=== PATIENT | female | born 1965 | race Caucasian/White ===

== ENCOUNTER 2020-11-25 10:02 | Inpatient (IN) | payer BC ==
[2020-11-25] MEDS ORDERED: CHERRY SYRUP 10 ML UDC PO ONE (11:06)
[2020-11-25] MEDS ORDERED: DEXAMETHASONE 10 MG/ML VIAL PO STA (11:06)
--- NOTE | 2020-11-25 11:09 | XRAY Report ---
PROCEDURE: Chest 1 View X-Ray INDICATIONS: dyspnea TECHNIQUE: One view of the chest was acquired. COMPARISON: None. FINDINGS: Surgical changes and devices: None. Lungs and pleura: No pleural effusions or pneumothorax. Ill-defined airspace opacities are seen sebastian g lateral periphery of bilateral lung keys. Mild pulmonary vascular congestion is also seen. Mediastinum: Mediastinal contours appear normal. Heart size is mildly enlarged. Bones and chest wall: No suspicious bony lesions. Overlying soft tissues appear unremarkable. IMPRESSION: Ill-defined airspace opacity along lateral periphery of bilateral lung keys concerning for bilatera l pulmonary infiltrates possibly from atypical pneumonia. No pleural effusion or pneumothorax. Reviewed by: Abdulkadir Sparks MD on 11/25/2020 11:08 AM PDT Approved by: Abdulkadir Sparks MD on 11/25/2020 11:08 AM PDT Station ID: [id number]
--- NOTE | 2020-11-25 11:09 | ED Physician Documentation ---
PD HPI DYSPNEA - Stated complaint Stated Complaint: C+ SOA - Chief complaint Chief Complaint: Resp - History obtained from History obtained from: Patient - Additional information Additional information: 55-year-old woman was diagnosed with Covid about 2 weeks ago. The myalgias and fevers are gone but she has persistent shortness of breath and pain with deep breathing as well as right leg pain. No history of DVT or PE, but her daughter has had one in the past. Review of Systems Ten Systems: 10 systems reviewed and negative Constitutional: denies: Fever, Chills Ears: reports: Reviewed and negative Nose: reports: Reviewed and negative Throat: reports: Reviewed and negative Cardiac: reports: Reviewed and negative Respiratory: reports: Reviewed and negative PD PAST MEDICAL HISTORY - Allergies Allergies/Adverse Reactions: Allergies Allergy/AdvReac Type Severity Reaction Status Date / Time Iodine and Iodide Containing Allergy Anaphylaxis Verified 11/25/20 12:13 Produc shellfish derived Allergy Anaphylaxis Verified 11/25/20 12:14 Sulfa (Sulfonamide Allergy Anaphylaxis Verified 11/25/20 10:17 Antibiotics) PD ED PE NORMAL - Vitals Vital signs reviewed: Yes - General General: Alert and oriented X 3, No acute distress - HEENT HEENT: PERRL, EOMI - Neck Neck: Supple, no meningeal sign, No bony TTP - Cardiac Cardiac: Other (Mild tachycardia, regular rate and rhythm without murmur) - Respiratory Respiratory: No respiratory distress, Clear bilaterally - Abdomen Abdomen: Normal bowel sounds, Soft, Non tender - Back Back: No CVA TTP, No spinal TTP - Derm Derm: Normal color, Warm and dry - Extremities Extremities: Other (Some right calf tenderness, no obvious asymmetry) - Neuro Neuro: Alert and oriented X 3, Normal speech Results - Vitals Vitals: Vital Signs - 24 hr 11/25/20 11/25/20 10:13 14:54 Temperature 36.5 C Heart Rate 103 H 91 Respiratory 20 32 H Rate Blood Pressure 145/103 H 102/58 L O2 Saturation 97 89 L Oxygen O2 Source Room air - EKG (time done) 1118 Rate: Rate (enter#) (97) Rhythm: NSR [place]: Normal Intervals: Normal MA QRS: LVH Ischemia: Normal ST segments Computer interpretation: Agree with computer - Labs Labs: Laboratory Tests 11/25/20 11/25/20 11/25/20 11:08 11:08 11:08 WBC 7.2 RBC 4.69 Hgb 14.7 Hct 44.8 MCV 95.5 MCH 31.3 H MCHC 32.8 RDW 13.1 Plt Count 375 MPV 9.3 Neut # (Auto) 4.2 Lymph # (Auto) 1.9 [place] # (Auto) 0.8 Eos # (Auto) 0.2 Baso # (Auto) 0.1 Absolute Nucleated RBC 0.00 Nucleated RBC % 0.0 D-Dimer > 1050.0 H Sodium 139 Potassium 4.1 Chloride 101 Carbon Dioxide 26 Anion Gap 12.0 BUN 10 Creatinine 0.6 Estimated GFR (MDRD) 103 Glucose 92 Calcium 9.1 Troponin I High Sens 11/25/20 11:08 WBC RBC Hgb Hct MCV MCH MCHC RDW Plt Count MPV Neut # (Auto) Lymph # (Auto) [place] # (Auto) Eos # (Auto) Baso # (Auto) Absolute Nucleated RBC Nucleated RBC % D-Dimer Sodium Potassium Chloride Carbon Dioxide Anion Gap BUN Creatinine Estimated GFR (MDRD) Glucose Calcium Troponin I High Sens 4.4 - Rads (name of study) 1v chest Radiology: EMP read contemporaneously (Ill-defined airspace opacity along the lateral peripherally of bilateral lung keys concerning for atypical pneumonia) PD MEDICAL DECISION MAKING - ED course ED course: 55-year-old woman who has had Covid for 2 weeks presents with continued short ness of breath and episodic hypoxemia. Down to 80% at home and down to the mid to upper 80s here on room air. Found to have persistent Covid pneumonia on imaging but also subsegmental pulmonary emboli bilaterally. Pasi score is not too high but the hypoxemia mandates admission and she is administered Lovenox. Spoke with Dr. Bonilla for admission at 3 PM. Per the radiologist there is no evidence of right heart strain Departure - Departure Disposition: 66 [facility] DC/Xfer Clinical Impression: COVID-19, Pulmonary emboli, Hypoxemia Condition: Serious
[2020-11-25 11:14] LABS: BASOPHILS # (AUTO) 0.1 10^3/uL (0.0-0.1); BASOPHILS % (AUTO) 0.8 %; EOSINOPHILS # (AUTO) 0.2 10^3/uL (0.0-0.7); EOSINOPHILS % (AUTO) 3.1 %; HCT - HEMATOCRIT 44.8 % (37.0-47.0); HGB - HEMOGLOBIN 14.7 g/dL (12.0-16.0); LYMPHOCYTES # (AUTO) 1.9 10^3/uL (1.5-3.5); MEAN CORPUSCULAR HEMOGLOBIN 31.3 pg (27.0-31.0); MEAN CORPUSCULAR HGB CONC 32.8 g/dL (32.0-36.0); MEAN CORPUSCULAR VOLUME 95.5 fL (81.0-99.0); MEAN PLATELET VOLUME 9.3 fL (7.9-10.8); MONOCYTES # (AUTO) 0.8 10^3/uL (0.0-1.0); MONOCYTES % (AUTO) 10.8 %; NEUTROPHILS # (AUTO) 4.2 10^3/uL (1.5-6.6); PLT - PLATELET COUNT 375 10^3/uL (130-450); RED BLOOD COUNT 4.69 10^6/uL (4.20-5.40); RED CELL DISTRIBUTION WIDTH 13.1 % (12.0-15.0); WHITE BLOOD COUNT 7.2 x10^3/uL (4.8-10.8)
[2020-11-25 11:26] LABS: CALCIUM 9.1 mg/dL (8.5-10.3); CREATININE 0.6 mg/dL (0.4-1.0); POTASSIUM 4.1 mmol/L (3.5-5.0)
[2020-11-25] MEDS ORDERED: diphenhydrAMINE INJ 50 MG/ML VIAL IVP STA (12:15)
[2020-11-25] MEDS ORDERED: IOVERSOL 320 100 ML VIAL IVP ONE ×2 (13:07→16:30)
[2020-11-25] MEDS ORDERED: ONDANSETRON 4 MG/2 ML VIAL IVP STA (14:25)
[2020-11-25] MEDS ORDERED: KETOROLAC 15 MG/ML VIAL IVP STA (14:50)
[2020-11-25] MEDS ORDERED: ENOXAPARIN 100 MG/ML SYRINGE SUBQ STA (14:50)
[2020-11-25] MEDS ORDERED: SODIUM CHLORIDE 0.9% 1,000 ML IV STA (14:50)
--- NOTE | 2020-11-25 15:07 | CT Report ---
PROCEDURE: ANGIO CHEST W/WO INDICATIONS: dyspnea, pe protocol CONTRAST: IV CONTRAST: Optiray 320 ml: 80 PO CONTRAST: *NO PO CONTRAST TECHNIQUE: After the administration of intravenous contrast, images were acquired from the pulmonary apices to t he posterior costophrenic angles. 3-dimensional maximum intensity projection (MIP) coronal and sagit kathryn reformats were then acquired through the thorax. For radiation dose reduction, the following was used: automated exposure control, adjustment of mA and/or kV according to patient size. COMPARISON: Chest x-ray one view, 11/25/2020 FINDINGS: Image quality: Excellent. Pulmonary arteries: Pulmonary arteries are normal in size. There are intraluminal filling defects in volving the right main, right upper, middle and lower lobe lobar arteries, segmental arteries, as wel l as a left upper lobe segmental artery, consistent with pulmonary embolism. Lungs and pleura: There are bilateral peripheral irregular nodular infiltrates consistent with atypi rc pneumonia. No pleural effusions or pneumothorax. Central and peripheral airways are patent. Mediastinum: Heart size is normal, without pericardial effusion. No mediastinal or hilar adenopathy . A borderline sized 0.9 cm right paratracheal lymph node is present, likely reactive. Thoracic aort a is normal in caliber and enhancement. Esophagus is normal in caliber, without hiatal hernia. Bones and chest wall: No suspicious bony lesions. Ribs and thoracic spine appear intact throughout. No axillary or supraclavicular adenopathy. The thyroid is normal in size and there are no incident al findings. Abdomen: Visualized upper abdominal solid organs appear normal in the early arterial phase of enhanc ement. IMPRESSION: 1. Bilateral pulmonary embolism, right greater than left. No findings to suggest right heart strain. 2. Bilateral peripheral irregular nodular infiltrates consistent with atypical pneumonia. The result was discussed with Dr. Snyder. Reviewed by: Mikie Samuels MD on 11/25/2020 3:05 PM PDT Approved by: Mikie Samuels MD on 11/25/2020 3:05 PM PDT Station ID: [id number]
[2020-11-25] MEDS ORDERED: SODIUM CHLORIDE FLUSH 0.9% 10 ML SYRINGE IVP PRN (15:26)
[2020-11-25] MEDS ORDERED: ONDANSETRON ODT 4 MG TABLET TL PRN (15:35)
[2020-11-25] MEDS ORDERED: SODIUM CHLORIDE 0.9% 1,000 ML IV SCH (16:00)
[2020-11-25 16:38] LABS: B. PARAPERTUSSIS- RESP PCR PAN NOT DETECTED; B. PERTUSSIS- RESP PCR PANEL NOT DETECTED; C. PNEUMONIAE- RESP PCR PANEL NOT DETECTED; CORONAVIRUS 229E-RESP PCR NOT DETECTED; CORONAVIRUS HKU1-RESP PCR NOT DETECTED; CORONAVIRUS NL63-RESP PCR NOT DETECTED; CORONAVIRUS OC43-RESP PCR NOT DETECTED; HUMAN METAPNEUMOVIRUS NOT DETECTED; INFLUENZA A- RESP PCR PANEL NOT DETECTED; INFLUENZA B - RESP PCR PANEL NOT DETECTED; M. PNEUMONIAE- RESP PCR PANEL NOT DETECTED; PARAINFLUENZA VIRUS 1 NOT DETECTED; PARAINFLUENZA VIRUS 2 NOT DETECTED; PARAINFLUENZA VIRUS 3 NOT DETECTED; PARAINFLUENZA VIRUS 4 NOT DETECTED; RHINOVIRUS/ENTEROVIRUS NOT DETECTED; RSV- RESP PCR PANEL NOT DETECTED; SARS-CoV-2 -RESP PCR PANEL DETECTED
[2020-11-25] MEDS: SODIUM CHLORIDE FLUSH 0.9% 10 ML SYRINGE IVP SCH (17:08)
--- NOTE | 2020-11-25 17:18 | HISTORY & PHYSICAL EXAMINATION ---
Chief Complaint - Chief Complaint Chief Complaint: short of breath History of Present Illness - Admitted From Admitted From:: home - History Obtained From Records Reviewed: [facility] History obtained from: Dr. Snyder Exam Limitations: none - History of Present Illness HPI Comment/Other: The patient presented to the emergency room with ongoing shortness of breath with chest pressure. Every time she took a deep breath it hurt even more. She was already seen in an outpatient clinic in [facility] 2.5-3 weeks ago and was treated as Covid pneumonia. Outpatient treatment included amoxicillin, Z-Lc, and is currently on doxycycline. She was already hypoxic and struggling to breathe then but refused admission. She continued to be miserable with diffuse flulike symptoms, nausea, no appetite. Occasional vomiting. Its been along 3 weeks. But about a day or 2 ago she thought she was on the mend and actually had a little bit more appetite. Did not vomit as much. A few days ago she noticed that there was a black tarry bowel movement that stung the skin of her buttock. It has not happened since. Starting yesterday afternoon she started to feel like she was coming back down with that again. She was so miserable. She thought that she was on the mend and she is very depressed at the idea that she was sick with Covid again. She felt left-sided chest pressure, heaviness and a struggle to breathe and started having pleuritic chest pain. Right leg has been hurting her. She feels like there is a tender knot in the middle of her calf. Her youngest son is also sick with Covid. But he is [place] So her daughter brought her to the emergency room. She was initially evaluated by Dr. Snyder and her blood pressure was 145/103 with a heart rate of 103 and she was 97% on room air. Pain was rated a 6 out of 10 when she took a deep breath. She is 5 foot 2 inches tall and weighs about 100 kg. His exam showed her to be alert and oriented, mild tachycardia, no respiratory distress with clear lungs. Her labs were essentially normal for chemistry and CBC. Covid positive on nares. D-dimer greater than 1050. CT pulmonary angiogram had bilateral pulmonary embolism, right greater than left. No findings suggesting right heart strain. She had bilateral peripheral irregular nodularities consistent with atypical pneumonia. He was going to send her home after starting her on a NOAC. But while in the emergency room her O2 sats dropped to 89% or lower with increasing tachypnea and hypotension of 102/58. As such she is asking us to admit the patient to the inpatient service for treatment of symptomatic pulmonary embolism. 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 Mom in her late 60s after having heart valve repair and subsequent postoperative complication of pneumonia. 1 brother is healthy. No medical illnesses. 3 children. 1 son has asthma and is currently sick with Covid. One child is normally healthy without any illnesses. Third child has history of hypertension and thyroidectomy. Living arrangement: At home Living Situation: With spouse/s.o. Social History Notes: She is from [place]. She came to visit her daughter [place] on [place] about 4 to have 5 years ago and really liked it. They moved from [place] to [place] temporarily, and has been living in [place] since her works in [employer]. They have been looking at property here in [place] and hope to [place]. She has not worked in about 5 years. No specific reason. She has no history of recreational substance abuse. She rarely drinks alcohol. She never smoked.She, her , and their son live in [place]. - Substance History Use: Uses substance without health or social issues: NONE Abuse: Recurrent use of substance despite neg consequences: NONE Dependence: Experiences withdrawal or developed tolerances: NONE - POLST Patient has POLST: No POLST Status: Full Code Meds/Allgy - Home Medications Home Medications: Ambulatory Orders Medication Instructions Recorded Confirmed Albuterol Sulf [Ventolin Hfa 1 - 2 puffs Q4H PRN 11/25/20 11/25/20 Inhaler] Doxycycline Monohydrate 100 mg BID 11/25/20 11/25/20 - Allergies Allergies/Adverse Reactions: Allergies Allergy/AdvReac Type Severity Reaction Status Date / Time Iodine and Iodide Containing Allergy Anaphylaxis Verified 11/25/20 12:13 Produc shellfish derived Allergy Anaphylaxis Verified 11/25/20 12:14 Sulfa (Sulfonamide Allergy Anaphylaxis Verified 11/25/20 10:17 Antibiotics) Review of Systems - Constitutional Constitutional: reports: Fatigue, Chills, Malaise, Weakness, Poor appetite, Diaphoresis, Weight loss - Eyes Eyes: denies: Pain, Irritation, Amaurosis, Blurred vision, Vision loss - Ears, Nose & Throat Ears, Nose & Throat: reports: Sore throat, Hoarseness. denies: Hearing loss, Hearing aids, Nasal obstruction, Nasal congestion, Postnasal drainage - Cardiovascular Cariovascular: reports: Chest pain, Lightheadedness, Exertional dyspnea, Decr. exercise tolerance - Respiratory Respiratory: reports: Cough, Wheezing, SOB at rest, SOB with exertion. denies: Sputum production, Snoring, Hemoptysis, Orthopnea - Gastrointestinal Gastrointestinal: reports: Abdominal distention, Nausea, Vomiting. denies: Abdominal pain - Genitourinary Genitourinary: denies: Dysuria, Frequency, Urgency, Hematuria, Incontinence, Flank pain - Musculoskeletal Musculoskeletal: reports: Muscle pain, Back pain, Muscle aches, Muscle weakness - Integumentary Integumentary: reports: Rash (On her buttock when she had the black tarry stool last week. But it has not come back.). denies: Pruritis, Lesions, Dryness - Neurological Neurological: reports: General weakness, Headache. denies: Focal weakness, Dizziness, Numbness, Memory problems, Pre-existing deficit - Psychiatric Psychiatric: reports: Depression (With this. She has been absolutely miserable. 3 to 4 days ago she actually was thinking that maybe if she could just close he r eyes and go to sleep and she would feel so much better.) - Endocrine Endocrine: denies: Polyuria, Polydypsia - Hematologic/Lymphatic Hematologic/Lymphatic: denies: Anemia, Bruising, Petechiae Prior Level of Functionality: Prior to Covid, she was completely independent with activities of daily living. Driving a car, cleaning house, paying bills etc. No use of durable medical equipment. Since Covid she is very weak, spends a lot of time in bed or chair. Daughter has been helping her a lot. Exam - Vital Signs Reviewed Vital Signs: Yes Vital Signs: Vital Signs x48h Temp Pulse Pulse Resp BP BP Pulse Ox 11/25/20 16:59 36.8 C 110 H 22 151/94 H 98 11/25/20 16:30 95 22 117/71 93 11/25/20 16:00 97 24 115/75 95 11/25/20 14:54 91 32 H 102/58 L 89 L 11/25/20 13:00 96 22 102/65 91 L 11/25/20 12:00 95 24 112/70 92 11/25/20 10:13 36.5 C 103 H 20 145/103 H 97 - Physical Exam General Appearance: positive: Alert, Mild distress, Other (5 foot 2 inch female 102 kg, tearful intermittently discussing her miserable and depressed she is. Distress is mainly emotional. Occasional cough. No respiratory distress.) Eyes Bilateral: positive: PERRL, EOMI ENT: positive: No signs of dehydration Neck: positive: No JVD. negative: Stiff neck Respiratory: positive: No respiratory distress. negative: Wheezes, Rales, Rhonchi Cardiovascular: positive: Regular rate & rhythm. negative: Systolic murmur, Gallop/S4, Friction rub Peripheral Pulses: positive: 1+ Abdomen: positive: Non-tender, Nml bowel sounds, No distention, Other (Large obese pannus) Skin: positive: Warm, Dry, Pallor Extremities: positive: Full ROM, Nml appearance, No pedal edema, Other (Right calf is tender. No redness or heat.) Neurologic/Psychiatric: positive: Oriented x3, CN's nml (2-12), Motor nml, Depressed mood/affect Conclusion/Plan - Problem List (1) Pulmonary emboli Conclusion/Plan: Initial PESI score was quite low. But with the hypoxemia and sudden tachycardia and drop in blood pressure she warranted an inpatient admission. She was hemodynamically unstable. Right leg may have the DVT. Plan: Already received Lovenox in the ER and will be transition to Eliquis. Continue to monitor. She is a full code. Qualifiers: Pulmonary embolism type: multiple subsegmental (without acute cor pulmonale) Qualified Code(s): I26.94 - Multiple subsegmental pulmonary emboli without acute cor pulmonale (2) Hypoxemia Conclusion/Plan: Due to pulmonary emboli. She said she has been monitoring her pulse oximetry at home. Her oxygen level had gotten normal over the last few days until this chest pressure. So I do not think her hypoxemia is from Covid but from the PE. (3) COVID-19 Conclusion/Plan: May have Covid long-haul symptoms. While she has been improving is been a slow improvement with continued myalgias or arthralgias emotional lability, depression, and extreme fatigue. At this time there is no acute treatment for this. We will continue to monitor. - Lab Results Lab results reviewed: Yes Fish Bones: 11/25/20 11:08 11/25/20 11:08 - Diagnostic Imaging Results Diagnostic Imaging Results: positive: Final report reviewed Diagnostic Imaging Results Comments: Chest x-ray compatible with atypical pneumonia findings. And CT pulmonary angiogram with bilateral pulmonary embolism right greater than left. Bilateral peripheral irregular nodular infiltrates consistent with atypical pneumonia. Core Measures - Anticipated LOS I expect patient to be DC'd or transferred within 96 hours.: Yes - DVT/VTE - Prophylaxis VTE/DVT Device ordered at admit?: Yes
[2020-11-25] MEDS ORDERED: ALBUTEROL NEB 2.5 MG/3 ML INH PRN (19:12)
[2020-11-25] MEDS ORDERED: ENOXAPARIN 100 MG/ML SYRINGE SUBQ SCH (21:00)
[2020-11-25] MEDS: RIVAROXABAN 15 MG TABLET PO SCH (21:29)
[2020-11-25] MEDS: ONDANSETRON 4 MG/2 ML VIAL IVP PRN (21:34)
[2020-11-26] MEDS: SODIUM CHLORIDE FLUSH 0.9% 10 ML SYRINGE IVP SCH ×3 (03:23→17:13)
[2020-11-26] MEDS ORDERED: KETOROLAC 15 MG/ML VIAL IVP STA (07:06)
[2020-11-26] MEDS: RIVAROXABAN 15 MG TABLET PO SCH ×2 (09:26→21:04)
--- NOTE | 2020-11-26 09:28 | Ultrasound Report ---
PROCEDURE: Duplex Ext Veins Bilateral INDICATIONS: Pulmonary emboli TECHNIQUE: Real-time imaging, as well as color and pulse Doppler interrogation, were performed of the deep veins of both legs from the inguinal ligament to the popliteal fossa. COMPARISON: None FINDINGS: There is nonocclusive thrombus appearing acute in the popliteal vein, extending into the po sterior tibial and peroneal veins. Remaining deep venous veins including common femoral and superfici al femoral veins are patent. IMPRESSION: Deep venous thrombosis in the popliteal, proximal posterior tibial and peroneal veins as above. The above findings are concordant with preliminary report. Reviewed by: Jami Dee MD on 11/26/2020 9:27 AM PDT Approved by: Jami Dee MD on 11/26/2020 9:27 AM PDT Station ID: [id number]
--- NOTE | 2020-11-26 18:05 | PROVIDER PROGRESS NOTE ---
Subjective - Prog Note Date Prog Note Date: 11/26/20 Prog Note Time: 18:09 - Subjective Pt reports feeling: Improved Subjective: although she feels less chest pressure and less chest tightness she coughs and coughs. eating ok. able to get up in room. daughter with her. Current Medications - Current Medications Current Medications: Active Medications Acetaminophen (Acetaminophen 325 Mg Tablet) 650 mg PO Q4HR PRN PRN Reason: Pain 1 to 4 Albuterol (Albuterol Neb 2.5 Mg/3 Ml) 2.5 mg INH RTQ4H PRN PRN Reason: Wheezing Ondansetron HCl (Ondansetron Odt 4 Mg Tablet) 4 mg TL Q6HR PRN PRN Reason: Nausea / Vomiting Ondansetron HCl (Ondansetron 4 Mg/2 Ml Vial) 4 mg IVP Q6HR PRN PRN Reason: Nausea / Vomiting Last Admin: 11/25/20 21:34 Dose: 4 mg Documented by: Oxycodone HCl (Oxycodone 5 Mg Tablet) 5 mg PO Q4HR PRN PRN Reason: Pain 5 to 7 Rivaroxaban (Rivaroxaban 15 Mg Tablet) 15 mg PO BID [facility] Last Admin: 11/26/20 09:26 Dose: 15 mg Documented by: Sodium Chloride (Sodium Chloride Flush 0.9% 10 Ml Syringe) 10 ml IVP PRN PRN PRN Reason: NEEDED PER PROVIDER ORDERS Sodium Chloride (Sodium Chloride Flush 0.9% 10 Ml Syringe) 10 ml IVP 0100,0900,1700 [facility] Last Admin: 11/26/20 17:13 Dose: 10 ml Documented by: Albuterol Sulf [Ventolin Hfa Inhaler] 1 - 2 puffs Q4H PRN 11/25/20 Doxycycline Monohydrate 100 mg BID 11/25/20 Objective - Vital Signs/Intake & Output Reviewed Vital Signs: Yes Vital Signs: Vital Signs x48h Temp Pulse Resp BP BP Pulse Ox 11/26/20 16:00 36.5 C 92 20 134/77 H 94 11/26/20 13:23 36.6 C 93 12 120/68 96 11/26/20 13:19 97 11/26/20 13:15 98 Intake & Output: Intake & Output 11/23/20 11/24/20 11/25/20 11/26/20 23:59 23:59 23:59 23:59 Intake Total 1550 2582 Balance 1550 2582 - Objective General Appearance: positive: Alert, Other (constant dry spasmodic cough, but no increased respiratory effort) Eyes Bilateral: positive: PERRL, EOMI ENT: positive: No signs of dehydration Neck: positive: No JVD. negative: Stiff neck Respiratory: positive: No respiratory distress, Rales (minimal at bases.). negative: Wheezes, Rhonchi Cardiovascular: positive: Regular rate & rhythm. negative: Systolic murmur, Gallop/S4, Friction rub Abdomen: positive: Non-tender, No organomegaly, Nml bowel sounds, No distention Skin: positive: Warm, Dry, Other (her skin color on her face so much better) Extremities: positive: Full ROM, Other (right calf and popliteal fossa ache.) Neurologic/Psychiatric: positive: Oriented x3, CN's nml (2-12), Motor nml, S ensation nml - Lab Results Fish Bones: 11/25/20 11:08 11/25/20 11:08 - Diagnostic Imaging Diagnostic Imaging Results: positive: Final report reviewed Diagnostic Imaging Comments: Nonocclusive thrombus appearing acute in the popliteal vein, extending into the posterior tibial and peroneal veins. Remaining deep veins in this veins including common femoral and superficial femoral are patent. Bilateral. Assessment/Plan - Problem List (1) Pulmonary emboli Impression: Initial PESI score was quite low. But with the hypoxemia and sudden tachycardia and drop in blood pressure she warranted an inpatient admission. She was hemodynamically unstable. Venous Doppler, if I am interpreting it correctly says that she has bilateral DVTs. Plan: Already received Lovenox in the ER and will be transition to Eliquis. She is now on Eliquis. Still with mild hypoxemia. She is down to 1 L nasal cannula. I anticipate her to be off oxygen by tomorrow and will discharge her then.For her cough, she really does not want any medication. I have told her that I will at least write for Robitussin-DM and if she wants it as needed she can ask the nurse. Qualifiers: Pulmonary embolism type: multiple subsegmental (without acute cor pulmonale) Qualified Code(s): I26.94 - Multiple subsegmental pulmonary emboli without acute cor pulmonale (2) Hypoxemia Conclusion/Plan: Due to pulmonary emboli. She said she has been monitoring her pulse oximetry at home. Her oxygen level had gotten normal over the last few days until this chest pressure. So I do not think her hypoxemia is from Covid but from the PE.Plan is as above. (3) COVID-19 Conclusion/Plan: May have Covid long-haul symptoms. While she has been improving is been a slow improvement with continued myalgias or arthralgias emotional lability, depression, and extreme fatigue. At this time there is no acute treatment for this. We have continue to monitor. She says she has had substantial improvement from yesterday today. The myalgias, arthralgias, and to share misery of not being able to breathe have almost completely resolved. She has an appetite today. Her chest is moving more. But she has quite a bit of cough. Qualifiers: Qualified Code(s): I26.94 - Multiple subsegmental pulmonary emboli without acute cor pulmonale
[2020-11-26] MEDS: ONDANSETRON 4 MG/2 ML VIAL IVP PRN (21:09)
[2020-11-26] MEDS: oxyCODONE 5 MG TABLET PO PRN (21:09)
[2020-11-27] MEDS: SODIUM CHLORIDE FLUSH 0.9% 10 ML SYRINGE IVP SCH ×2 (00:51→08:52)
[2020-11-27] MEDS: oxyCODONE 5 MG TABLET PO PRN (01:06)
[2020-11-27] MEDS: ACETAMINOPHEN 325 MG TABLET PO PRN ×2 (01:06→08:51)
[2020-11-27] MEDS: guaiFENesin/DEXTROMETHORPHAN 10 ML UDC PO PRN ×2 (01:06→08:51)
[2020-11-27 07:52] VITALS: BP 118/84
--- NOTE | 2020-11-27 08:04 | Discharge Plan ---
Discharge Plan Problem Reviewed?: Yes Disposition: Home, Self Care Condition: Fair Prescriptions: Apixaban [Eliquis] 10 mg PO BID #28 tablet Apixaban [Eliquis] 5 mg PO BID #60 tablet Albuterol Sulf [Ventolin Hfa Inhaler] 1 - 2 puffs INH Q4H PRN #1 gm PRN Reason: Dyspnea Diet: Regular Activity Restrictions: Activity as Tolerated Shower Restrictions: No Driving Restrictions: Yes (no driving until cough and sob settle down) Health Concerns: Admitted to the hospital because of severe shortness of breath. He was already been diagnosed with Covid and most likely had Covid pneumonia 3 weeks ago and were slowly, slowly recovering. You still felt miserable with all over body aches, chest aches, severe fatigue and poor appetite. On top of that you then started getting very short of breath for a day and we found you to have bilateral blood clots to the lung. Both of your legs have blood clots in the blood clot is traveled from your legs to your lungs. You have been placed on a blood thinner. The blood thinner does not dissolve the blood clots. Those will dissolve on their own as your body takes care of it. But the blood thinner will stop more blood clots from forming. You feel much better. You do not have the body aches. Your appetite is a little bit better. While you were here you needed up to 3 L of oxygen in your nose to maintain normal oxygen in your body. You were able to become down to 1 L. On the day of discharge, without oxygen, your oxygen saturation in your body is about 92 to 93%. Plan of Treatment: 1. You will continue Eliquis. That is 10 mg twice a day for 7 days. And then go down to 5 mg twice a day for the next 3 months. 2. Please see your primary care provider in the next 2 to 3 weeks. Your primary care provider will monitor you. In about 3 months they will need to see you to decide if you need to stay on the blood thinner or come off. 3. You had a terrible cough while you were here. The most she would like us to do is give you Robitussin-DM and you can buy that [id number]. You also need a refill on your Ventolin inhaler and that was sent to your pharmacy. 4. Because you are on a blood thinner, please be careful of falls, hitting your head. If you develop bleeding from your nose, urine, rectum, or are coughing up blood, please notify your primary care provider immediately. Stop your pill until your primary care provider says you can take it. Care Goals: To slowly recover from cough, pneumonia. Get back your baseline endurance and doing the things you want to do. Assessment: Patient And daughter, have understood care plan, promised to follow through. No Smoking: If you smoke, Please STOP! Call for help. Follow-up with: MICHAEL BARRAZA ARNP [Primary Care Provider] -
[2020-11-27] MEDS: RIVAROXABAN 15 MG TABLET PO SCH (08:51)
[2020-11-27] MEDS ORDERED: polyethylene glycoL 3350 17 GM PACKET PO SCH (09:00)
--- NOTE | 2020-11-27 10:37 | DISCHARGE SUMMARY ---
"Discharge Summary Admit Date: 11/25/20 Discharge Date: 11/27/20 Discharging Provider: Nicol Bonilla MD Primary Care Provider: ENRIQUE Christian Code Status: Attempt Resuscitation Condition at Discharge: Fair Discharge Disposition: 01 Home, Self Care - DIAGNOSES Discharge Diagnoses with Status of Each Condition: 1. Pulmonary emboli 2. Hypoxemia 3. COVID-19 4. Acute cough - HPI History of Present Illness: The patient presented to the emergency room with ongoing shortness of breath with chest pressure. Every time she took a deep breath it hurt even more. She was already seen in an outpatient clinic in [facility] 2.5-3 weeks ago and was treated as Covid pneumonia. Outpatient treatment included amoxicillin, Z-Lc, and is currently on doxycycline. She was already hypoxic and struggling to breathe then but refused admission. She continued to be miserable with diffuse flulike symptoms, nausea, no appetite. Occasional vomiting. Its been along 3 weeks. But about a day or 2 ago she thought she was on the mend and actually had a little bit more appetite. Did not vomit as much. A few days ago she noticed that there was a black tarry bowel movement that stung the skin of her buttock. It has not happened since. Starting yesterday afternoon she started to feel like she was coming back down with that again. She was so miserable. She thought that she was on the mend and she is very depressed at the idea that she was sick with Covid again. She felt left-sided chest pressure, heaviness and a struggle to breathe and started having pleuritic chest pain. Right leg has been hurting her. She feels like there is a tender knot in the middle of her calf. Her youngest son is also sick with Covid. But [place] So her daughter brought her to the emergency room. She was initially evaluated by Dr. Snyder and her blood pressure was 145/103 with a heart rate of 103 and she was 97% on room air. Pain was rated a 6 out of 10 when she took a deep breath. She is 5 foot 2 inches tall and weighs about 100 kg. His exam claude wed her to be alert and oriented, mild tachycardia, no respiratory distress with clear lungs. Her labs were essentially normal for chemistry and CBC. Covid positive on nares. D-dimer greater than 1050. CT pulmonary angiogram had bilateral pulmonary embolism, right greater than left. No findings suggesting right heart strain. She had bilateral peripheral irregular nodularities consistent with atypical pneumonia. He was going to send her home after starting her on a NOAC. But while in the emergency room her O2 sats dropped to 89% or lower with increasing tachypnea and hypotension of 102/58. As such she is asking us to admit the patient to the inpatient service for treatment of symptomatic pulmonary embolism. - Past Medical History [employer]: reports: Ovarian cancer (With hysterectomy.), Other (.) - Past Surgical History Ortho: reports: Knee replacement /[employer]: reports: Hysterectomy, Oophrectomy, Other (Cystocele and rectocele repair.) - CONSULTS | PROCEDURES Procedures: 1. Chest x-ray with ill-defined airspace opacity along the lateral peripheral of bilateral lung keys concerning for bilateral pulmonary infiltrates. Possibly from atypical pneumonia. No pleural effusions. 2. Chest/thorax CT angiogram with bilateral pulmonary embolism. Right greater than left. No findings to suggest right heart strain. Bilateral peripheral irregular nodular infiltrates consistent with atypical pneumonia. 3. Bilateral venous duplex of extremities show deep venous thrombosis in the popliteal, proximal posterior tibial and peroneal veins bilaterally. - HOSPITAL COURSE Hospital Course: The patient was placed on immediate Lovenox 100 mg. She was then transition to Xarelto. Hypoxia was treated with nasal cannula oxygen. Her highest flow was 3L/min. On the day of discharge she was 92 to 93% on room air. When she was initially admitted she had myalgias, arthralgias, chest heaviness and pressure. She was miserable, tearful, and stating that if life was to be this way for the long haul she did not know if she could make it. By the next day with a good night sleep, control of pain, adequate oxygenation, she felt tremendously better. Patient was transitioned to Eliquis because she is fearful of the cost of her NOAC. We have coupons for Eliquis. We have sent the pharmacy a prescription for Eliquis 5 mg tablets. 2 tablets twice daily for 7 days. Then 5 mg tablets once a day twice a day. She will still need to get primary authorization from her PCP. She was asking for Robitussin-AC for nighttime. She also needed a refill on her Ventolin since she did not have much left in her canister. That was done. At discharge temperature was 36.6. Heart rate 90. Blood pressure 118/84. Respirations 17-22. She is 92% on room air. She is 5 feet 2 inches tall and weighs 102 kg. A pleasant, morbidly overweight female with a dry hacking cough that is spasmodic and nonstop. She did not want to take any medication for this during her stay but is asking for Robitussin-AC to sleep at night. Lungs have diffuse intermittent crackles. No increased respiratory effort. No tripoding. No use of accessory muscles. She has a regular rate and rhythm. A large abdominal pannus for morbid obesity that is with a soft abdomen, hypoactive bowel sounds, nontender. Right leg is slightly more swollen than the left in the calf region with tenderness in the mid calf on the right. But no redness no heat and Homans negative. Neurologically she is alert and oriented person place and time. Sits up in the bed and herself. Transitions to standing, walks to the bathroom. Is able to sit in a chair and feed herself breakfast. She is discharged in stable condition. I am asking her to follow-up with her primary care provider in the next week. She will need to get primary autho rization for the Eliquis. Greater than 30 minutes was spent coordinating discharge. - ALLERGIES Allergies/Adverse Reactions: Allergies Allergy/AdvReac Type Severity Reaction Status Date / Time Iodine and Iodide Containing Allergy Anaphylaxis Verified 11/25/20 12:13 Produc shellfish derived Allergy Anaphylaxis Verified 11/25/20 12:14 Sulfa (Sulfonamide Allergy Anaphylaxis Verified 11/25/20 10:17 Antibiotics) - MEDICATIONS Home Medications: Ambulatory Orders Medication Instructions Recorded Confirmed Doxycycline Monohydrate 100 mg BID 11/25/20 11/25/20 Apixaban [Eliquis] 5 mg PO BID #60 tablet 11/26/20 Apixaban [Eliquis] 10 mg PO BID #28 tablet 11/26/20 Albuterol Sulf [Ventolin Hfa 1 - 2 puffs INH Q4H PRN #1 gm 11/27/20 Inhaler] guaiFENesin/CODEINE [Robitussin AC] 5 ml PO Q6H #100 ml 11/27/20 guaiFENesin/DEXTROMETHORPHAN 10 ml PO Q6HR PRN 11/27/20 [Celiasin Dm] - LABS Result Diagrams: 11/25/20 11:08 11/25/20 11:08"
== END 2020-11-27 10:30 | disposition home or self-care (01) | DRG 175 ==
LOC: ED 10:02 → MS3 15:26
PROVIDERS: ADMIT Specialist; ATTEND Specialist
DX: I26.94 Multiple subsegmental thrombotic pulmonary emboli without acute cor pulmonale (principal); U07.1 COVID-19; I82.433 Acute embolism and thrombosis of popliteal vein, bilateral; I82.443 Acute embolism and thrombosis of tibial vein, bilateral; I82.453 Acute embolism and thrombosis of peroneal vein, bilateral; Z68.41 Body mass index [BMI] 40.0-44.9, adult; R09.02 Hypoxemia; E66.01 Morbid (severe) obesity due to excess calories
CPT/HCPCS: 0202U; 36415; 71045; 71275; 80048; 84484; 85025; 85379; 93005; 93970; 96372; 96374; 96375; 99285; A9270; J1200; J1650; Q0162; Q9967

== ENCOUNTER 2021-01-19 10:43 | Outpatient (CLI) | payer BC ==
[2021-01-19] MEDS ORDERED: IOVERSOL 320 50 ML VIAL ONE (10:51)
[2021-01-19] MEDS ORDERED: IOPAMIDOL-300 100 ML VIAL ONE (10:51)
[2021-01-19] MEDS ORDERED: IOVERSOL 320 50 ML VIAL PO ONE (12:59)
[2021-01-19] MEDS ORDERED: IOPAMIDOL-300 100 ML VIAL IVP ONE (13:00)
--- NOTE | 2021-01-19 14:26 | CT Report ---
PROCEDURE: Abdomen/Pelvis W INDICATIONS: ABD PAIN, DYSPNEA CONTRAST: IV CONTRAST: Isovue 300 ml: 100 PO CONTRAST: Optiray 320 ml50 TECHNIQUE: After the administration of oral and intravenous contrast, 5 mm thick sections acquired from the diap hragms to the symphysis. 5 mm thick coronal and sagittal reformats were acquired. For radiation dos e reduction, the following was used: automated exposure control, adjustment of mA and/or kV accordin g to patient size. COMPARISON: None. FINDINGS: Image quality: Excellent. ABDOMEN: Lung bases: Lung bases are clear. Heart size is normal. Solid organs: Liver and spleen are normal in size and enhancement. Mild diffuse hepatic steatosis. Gallbladder is unremarkable. Biliary system is non dilated. Pancreas enhances normally. No adrenal nodules. Kidneys demonstrate normal size and enhancement, without hydronephrosis. Peritoneum and bowel: Bowel loops demonstrate normal wall thickness and caliber. No free fluid or a ir. Mild sigmoid diverticulosis without evidence of diverticulitis. Nodes and vessels: No retroperitoneal or mesenteric adenopathy by size criteria. Aorta and inferior vena cava are normal in size. Miscellaneous: No ventral hernias. PELVIS: Genitourinary: Bladder wall thickness is normal. Miscellaneous: No inguinal hernias or adenopathy. Uterus is surgically absent. Bones: No suspicious bony lesions. No vertebral body compression fractures. IMPRESSION: 1. Mild hepatic steatosis. 2. No evidence of acute abdominal process. 3. Mild sigmoid diverticulosis. Reviewed by: Eliel Kline MD on 01/19/2021 2:25 PM PDT Approved by: Eliel Kline MD on 01/19/2021 2:25 PM PDT Station ID: [id number]
--- NOTE | 2021-01-19 14:32 | CT Report ---
PROCEDURE: ANGIO CHEST W/WO INDICATIONS: ABD PAIN, DYSPNEA CONTRAST: IV CONTRAST: Isovue 300 ml: 100 PO CONTRAST: Optiray 320 ml50 TECHNIQUE: After the administration of intravenous contrast, images were acquired from the pulmonary apices to t he posterior costophrenic angles. 3-dimensional maximum intensity projection (MIP) coronal and sagit kathryn reformats were then acquired through the thorax. For radiation dose reduction, the following was used: automated exposure control, adjustment of mA and/or kV according to patient size. COMPARISON: 02/25/2021 FINDINGS: Image quality: Excellent. Pulmonary arteries: Pulmonary arteries are normal in size, and demonstrate no intraluminal filling d efects to suggest central pulmonary embolism. Previous pulmonary emboli have all resolved. Lungs and pleura: Extensive previous bilateral peripheral geographic irregular areas of airspace cons olidation have markedly improved, with minimal residual scarring and fibrosis, consistent with sequel ae of previous viral pneumonia. Minimal residual interstitial infiltrates remain. No pleural effusion s or pneumothorax. Central and peripheral airways are patent. Mediastinum: Heart size is normal, without pericardial effusion. No mediastinal or hilar adenopathy . Thoracic aorta is normal in caliber and enhancement. Esophagus is normal in caliber, without hiat al hernia. Bones and chest wall: No suspicious bony lesions. Ribs and thoracic spine appear intact throughout. No axillary or supraclavicular adenopathy. The thyroid is normal in size and there are no incident al findings. Abdomen: Visualized upper abdominal solid organs appear normal in the early arterial phase of enhanc ement. IMPRESSION: 1. Resolution of previous pulmonary emboli. No evidence of acute pulmonary emboli. 2. Significant interval improvement in pulmonary status consistent with near complete resolution of v iral pneumonia. Residual scarring and a degree of fibrosis is felt to be present. CLINICAL RECOMMENDATION STATEMENTS: In patients <35 years with an ITN detected on CT, MRI, or extrathyroidal ultrasound, the Committee re commends further evaluation with dedicated thyroid ultrasound if the nodule is ?1 cm and has no suspi cious imaging features, and if the patient has normal life expectancy. In patients ?35 years with an ITN detected on CT, MRI, or extrathyroidal ultrasound, the Committee re commends further evaluation with dedicated thyroid ultrasound if the nodule is ?1.5 cm and has no steve picious imaging features, and if the patient has normal life expectancy. (ACR, 2014) Reviewed by: Eliel Kline MD on 01/19/2021 2:31 PM PDT Approved by: Eliel Kline MD on 01/19/2021 2:31 PM PDT Station ID: [id number]
== END 2021-01-19 10:44 | disposition home or self-care (01) ==
LOC: DI 10:43
PROVIDERS: ATTEND Nurse Practitioner Family
DX: R06.00 Dyspnea, unspecified (principal); K76.0 Fatty (change of) liver, not elsewhere classified; K57.30 Diverticulosis of large intestine without perforation or abscess without bleeding
CPT/HCPCS: 36415; 71275; 74177; 80053; 85379; Q9967

== ENCOUNTER 2021-01-19 11:09 | Outpatient (CLI) | payer BC ==
[2021-01-19 11:44] LABS: ALBUMIN 4.1 g/dL (3.2-5.5); ALBUMIN/GLOBULIN RATIO 1.2 (1.0-2.2); BILIRUBIN,TOTAL 0.8 mg/dL (0.2-1.0); CALCIUM 9.5 mg/dL (8.5-10.3); CREATININE 0.8 mg/dL (0.4-1.0); POTASSIUM 4.2 mmol/L (3.5-5.0); TOTAL PROTEIN 7.5 g/dL (6.7-8.2)
== END 2021-01-19 11:10 | disposition home or self-care (01) ==
LOC: LAB 11:09
PROVIDERS: ATTEND Nurse Practitioner Family
DX: R06.00 Dyspnea, unspecified (principal)
CPT/HCPCS: 36415; 80053; 85379